=== PATIENT | female | born 1935 | race Caucasian/White ===

== ENCOUNTER → 2023-09-01 12:47 | Outpatient (REF) | payer MEDICARE, OTHER, SELFPAY ==
[2023-09-01 16:05] LABS: % Basophils 0.7 % (0-2); % Eosinophils 1.1 % (0-6); % Immature Granulocytes 1.2 % (0-0.5); % Lymphocytes 8.8 % (20.5-51.1); % Monocytes 8.3 % (1.7-9.3); % Neutrophils 79.9 % (42.2-75.2); Absolute Basophils 0.1 10^3/uL (0-0.2); Absolute Eosinophils 0.1 10^3/uL (0-0.7); Absolute Immature Granulocytes 0.1 10^3/uL (0-0.05); Absolute Lymphocytes 0.7 10^3/uL (1.2-3.4); Absolute Monocytes 0.6 10^3/uL (0.1-0.6); Hematocrit 45.1 % (37.0-47.0); Hemoglobin 14.6 g/dL (12.0-16.0); Mean Corp Hgb Conc. 32.4 g/dL (33.0-37.0); Mean Corpuscular Hgb 29.7 pg (27.0-31.0); Mean Corpuscular Volume 91.9 fL (81.0-99.0); Mean Platelet Volume 11.2 fL (7.4-10.4); Nucleated Red Blood Cells % 0 %; Platelet Count 252 10^3/uL (130-400); Red Blood Cell Count 4.91 10^6/uL (4.20-5.40); Red Cell Dist. Width 15.7 % (11.5-14.5); White Blood Cell Count 7.5 10^3/uL (4.8-10.8)
[2023-09-01 16:17] LABS: ALT (SGPT) 36 U/L (0-35); AST (SGOT) 45 U/L (14-36); Albumin 3.8 g/dl (3.5-5.0); Alkaline Phosphatase 389 U/L (38-126); Blood Urea Nitrogen 22 mg/dl (7-17); Calcium 8.9 mg/dl (8.4-10.2); Carbon Dioxide 28 mmol/L (22-30); Chloride 100 mmol/L (98-107); Glucose 94 mg/dl (70-99); Sodium 133 mmol/L (135-145); Total Bilirubin 1.9 mg/dl (0.2-1.3); Total Protein 6.7 g/dl (6.3-8.2); eGFR > 60.00
[2023-09-04 10:44] LABS: NT-proBNP 3260 pg/ml
== END ==
LOC: HWRAD 12:47
PROVIDERS: ATTENDING PHYSICIAN Family Medicine
DX: R06.02 Shortness of breath (principal); R53.81 Other malaise; R53.83 Other fatigue
CPT/HCPCS: 36415; 71046; 80053; 83880; 85025; 87077; 87086

== ENCOUNTER → 2023-09-08 13:37 | Outpatient (REF) | payer MEDICARE, OTHER, SELFPAY ==
[2023-09-08 15:17] LABS: INR 3.91; PT 38.4 Sec (11.4-14.6)
[2023-09-08 15:23] LABS: Blood Urea Nitrogen 15 mg/dl (7-17); Calcium 9.2 mg/dl (8.4-10.2); Carbon Dioxide 25 mmol/L (22-30); Chloride 98 mmol/L (98-107); Glucose 97 mg/dl (70-99); Sodium 131 mmol/L (135-145); eGFR > 60.00
[2023-09-08 15:27] LABS: NT-proBNP 5150 pg/ml
[2023-09-08 15:28] LABS: Potassium 4.3 mmol/L (3.5-5.1)
== END ==
LOC: HWRAD 13:37
PROVIDERS: ATTENDING PHYSICIAN Family Medicine
DX: R94.5 Abnormal results of liver function studies (principal); J90 Pleural effusion, not elsewhere classified; I48.21 Permanent atrial fibrillation; Z79.01 Long term (current) use of anticoagulants; E87.1 Hypo-osmolality and hyponatremia
CPT/HCPCS: 36415; 74160; 80048; 83880; 85610; Q9967

== ENCOUNTER → 2023-09-17 13:29 | Outpatient (REF) | payer MEDICARE, OTHER, SELFPAY ==
[2023-09-17 18:17] LABS: Blood Urea Nitrogen 13 mg/dl (7-17); Calcium 8.7 mg/dl (8.4-10.2); Carbon Dioxide 28 mmol/L (22-30); Chloride 92 mmol/L (98-107); Glucose 100 mg/dl (70-99); Potassium 4.7 mmol/L (3.5-5.1); Sodium 130 mmol/L (135-145); eGFR > 60.00
== END ==
LOC: RCS 13:29
PROVIDERS: ATTENDING PHYSICIAN Nurse Practitioner Gerontology
DX: I50.32 Chronic diastolic (congestive) heart failure (principal); J90 Pleural effusion, not elsewhere classified
CPT/HCPCS: 36415; 80048; 93306

== ENCOUNTER → 2023-09-21 13:58 | Outpatient (REF) | payer MEDICARE, OTHER, SELFPAY ==
[2023-09-21 15:05] LABS: INR 4.76; PT 44.9 Sec (11.4-14.6)
[2023-09-21 15:11] LABS: Blood Urea Nitrogen 15 mg/dl (7-17); Carbon Dioxide 34 mmol/L (22-30); Chloride 89 mmol/L (98-107); Glucose 100 mg/dl (70-99); Potassium 3.6 mmol/L (3.5-5.1); Sodium 131 mmol/L (135-145); eGFR > 60.00
[2023-09-21 15:17] LABS: NT-proBNP 3680 pg/ml
== END ==
LOC: RAD 13:58
PROVIDERS: ATTENDING PHYSICIAN Internal Medicine; FAMILY PHYSICIAN Family Medicine
DX: I07.1 Rheumatic tricuspid insufficiency (principal); Z79.01 Long term (current) use of anticoagulants
CPT/HCPCS: 36415; 71046; 80048; 83880; 85610

== ENCOUNTER → 2023-09-30 14:33 | Outpatient (REF) | payer MEDICARE, OTHER, SELFPAY | LOC: REG 14:33 | PROVIDERS: ATTENDING PHYSICIAN Family Medicine | DX: Z79.01 Long term (current) use of anticoagulants (principal); I48.21 Permanent atrial fibrillation | CPT/HCPCS: 36415; 85610 ==

== ENCOUNTER → 2023-10-12 13:16 | Outpatient (REF) | payer MEDICARE, OTHER, SELFPAY ==
[2023-10-12 14:48] LABS: INR 2.73; PT 28.8 Sec (11.4-14.6)
== END ==
LOC: REG 13:16
PROVIDERS: ATTENDING PHYSICIAN Family Medicine
DX: Z79.01 Long term (current) use of anticoagulants (principal); I48.21 Permanent atrial fibrillation
CPT/HCPCS: 36415; 85610

== ENCOUNTER → 2023-10-22 12:35 | Outpatient (REF) | payer MEDICARE, OTHER, SELFPAY | LOC: RSP 12:35 | PROVIDERS: ATTENDING PHYSICIAN Internal Medicine; FAMILY PHYSICIAN Family Medicine | DX: R06.02 Shortness of breath (principal) | CPT/HCPCS: 94727; 94729; 88738; 94010 ==

== ENCOUNTER → 2023-11-09 12:26 | Outpatient (REF) | payer MEDICARE, OTHER, SELFPAY ==
[2023-11-09 13:53] LABS: INR 1.97; PT 22.2 Sec (11.4-14.6)
== END ==
LOC: REG 12:26
PROVIDERS: ATTENDING PHYSICIAN Family Medicine
DX: Z79.01 Long term (current) use of anticoagulants (principal); I48.21 Permanent atrial fibrillation
CPT/HCPCS: 36415; 85610

== ENCOUNTER → 2023-12-07 12:09 | Outpatient (REF) | payer MEDICARE, OTHER, SELFPAY ==
[2023-12-07 14:43] LABS: PT 23.4 Sec (11.4-14.6)
[2023-12-07 15:01] LABS: Blood Urea Nitrogen 24 mg/dl (7-17); Calcium 9.6 mg/dl (8.4-10.2); Carbon Dioxide 30 mmol/L (22-30); Chloride 99 mmol/L (98-107); Glucose 85 mg/dl (70-99); Potassium 4.8 mmol/L (3.5-5.1); Sodium 135 mmol/L (135-145); eGFR > 60.00
== END ==
LOC: REG 12:09
PROVIDERS: ATTENDING PHYSICIAN Nurse Practitioner Gerontology; FAMILY PHYSICIAN Family Medicine
DX: I36.1 Nonrheumatic tricuspid (valve) insufficiency (principal); Z79.01 Long term (current) use of anticoagulants; I48.21 Permanent atrial fibrillation
CPT/HCPCS: 36415; 80048; 85610

== ENCOUNTER → 2024-01-13 12:55 | Outpatient (REF) | payer MEDICARE, OTHER, SELFPAY ==
[2024-01-13 13:57] LABS: INR 2.17; PT 24.4 Sec (11.4-14.6)
== END ==
LOC: REG 12:55
PROVIDERS: ATTENDING PHYSICIAN Family Medicine
DX: Z79.01 Long term (current) use of anticoagulants (principal); I48.21 Permanent atrial fibrillation
CPT/HCPCS: 36415; 85610